=== PATIENT | male | born 1950 | race Asian ===

== ENCOUNTER 2018-07-31 22:18 | Emergency (ER) | payer MEDICARE, OTHER ==
[~2018-07-31] VITALS: Ht 162.6 cm; Wt 66.2 kg
[2018-07-31 22:35] VITALS: BP 157/78
--- NOTE | 2018-07-31 23:10 | NUR ---
C/O RIGHT FOOT PAIN AFTER STEPPING ON A NAIL THIS AFTERNOON. TETNUS NOT UTD. DENIES OTHER SYMPTOMS. AMB WITH STEADY GAIT. FAMILY AT BEDSIDE.
--- NOTE | 2018-07-31 23:30 | NUR ---
DR ZACARIAS AT BEDSIDE.
[2018-07-31] MEDS ORDERED: IBUPROFEN 800 MG TAB PO ONE (23:50)
[2018-08-01 00:14] VITALS: BP 152/70
--- NOTE | 2018-08-01 00:14 | NUR ---
Patient discharged with v/s stable. Written and verbal after care instructions given and explained. Patient alert, oriented and verbalized understanding of instructions translated in Czech by daughter. Ambulatory with steady gait. All questions addressed prior to discharge. ID band removed. Patient advised to follow up with PMD. Rx of Motrin 800mg and Cipro 500mg given. Patient educated on indication of medication including possible reaction and side effects. Opportunity to ask questions provided and answered.
== END 2018-08-01 00:14 | disposition home or self-care (01) ==
LOC: MED 22:18
DX: S91.331A Puncture wound without foreign body, right foot, initial encounter (principal); W45.0XXA Nail entering through skin, initial encounter; Y93.89 Activity, other specified; Y92.89 Other specified places as the place of occurrence of the external cause; Y99.8 Other external cause status
CPT/HCPCS: 73630; 90471; 90715; 99283; Q0092

== ENCOUNTER 2019-01-02 19:33 | Emergency (ER) | payer MEDICARE, OTHER ==
[~2019-01-02] VITALS: Ht 162.6 cm; Wt 66.2 kg
[2019-01-02 19:51] VITALS: BP 134/80
--- NOTE | 2019-01-02 19:51 | NUR ---
PT AMBULATED TO BED 12.
--- NOTE | 2019-01-02 19:53 | NUR ---
PT AMBULATED TO BED 12.
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
--- NOTE | 2019-01-02 20:33 | NUR ---
PA AT BEDSIDE.
[2019-01-02] MEDS ORDERED: IBUPROFEN 600 MG TAB PO ONE (20:35)
--- NOTE | 2019-01-02 20:46 | NUR ---
PT REFUSED TDAP STATES HE HAD A VACCINE A FEW MONTHS AGO.
[2019-01-02] MEDS ORDERED: LIDOCAINE MPF 1% 10 ML ONE (21:10)
[2019-01-02] MEDS ORDERED: LIDOCAINE MPF 1% 10 MG/ML VIAL INJ ONE (21:10)
[2019-01-02 22:04] VITALS: BP 134/80
--- NOTE | 2019-01-02 22:04 | NUR ---
Patient discharged with v/s stable. Written and verbal after care instructions given and explained. Patient alert, oriented and verbalized understanding of instructions. Ambulatory with to home. All questions addressed prior to discharge. ID band removed. Patient advised to follow up with PMD. Rx of KEFELX AND IBURPROFEN 600MG given. Patient educated on indication of medication including possible reaction and side effects. Opportunity to ask questions provided and answered.
== END 2019-01-02 22:04 | disposition home or self-care (01) ==
LOC: MED 19:33
DX: S51.812A Laceration without foreign body of left forearm, initial encounter (principal); I10 Essential (primary) hypertension; E78.5 Hyperlipidemia, unspecified; W27.8XXA Contact with other nonpowered hand tool, initial encounter; Y93.89 Activity, other specified; Y92.89 Other specified places as the place of occurrence of the external cause; Y99.8 Other external cause status
CPT/HCPCS: 12002; 73090; 99283; J2001; 90715; C1758

== ENCOUNTER 2019-01-13 19:09 | Emergency (ER) | payer MEDICARE, OTHER ==
[~2019-01-13] VITALS: Ht 172.7 cm; Wt 65.8 kg
[2019-01-13 19:15] VITALS: BP 140/71
--- NOTE | 2019-01-13 19:15 | NUR ---
PT TAKEN TO BED 9
--- NOTE | 2019-01-13 19:28 | NUR ---
Dr. Brunson examining patient.
[2019-01-13 19:40] VITALS: BP 140/71
--- NOTE | 2019-01-13 19:40 | NUR ---
DISCHARGE PAPERS GIVEN TO PT. TOOTIE REMOVED BY DR GRAHAM. WOUND CLOSED. NO REDNESS. NO DRAINAGE. NO C/O PAIN. VSS. INSTRUCTED WHEN TO F/U WITH PCP AND WHEN TO RETURN TO ER. PT VERBALLIZED UNDERSTANDING OF DC INSTRUCTIONS. ALL QEUSTIONS ANSWERED.
== END 2019-01-13 19:40 | disposition home or self-care (01) ==
LOC: MED 19:09
DX: S51.812D Laceration without foreign body of left forearm, subsequent encounter (principal); I10 Essential (primary) hypertension; X58.XXXD Exposure to other specified factors, subsequent encounter
CPT/HCPCS: 99281